=== PATIENT | female | born 1950 | race African-American/Black ===

== ENCOUNTER 2016-10-22 14:45 | Observation (INO) | payer OTHER ==
[~2016-10-22] VITALS: Ht 165.1 cm; Wt 100.0 kg
[~2016-10-22 14:45] MED LIST: ALLO300; CELE200; GLUCTAB; [UNRECOGNIZED DRUG - OTHER]; [UNRECOGNIZED DRUG - REMARK]; [UNRECOGNIZED DRUG - REMARK]
[2016-10-22 14:53] VITALS: BP 217/114; PULSE 84; RESP 18; TEMP 97.8; O2SAT 99
--- NOTE | 2016-10-22 16:07 | PD ---
HPI . AMS x 1 day Chief Complaint: Dizziness Time Seen by Provider: 16:07 Travel History International Travel<30 days: No Contact w/Intl Traveler<30days: No Traveled to known affect area: No History of Present Illness HPI 66 yr old female with HTN, DM, HLD, chronic leg pain, and gout here with c/o AMS x 1 day. Apparently patient had severe leg pain yesterday and reached out to her sister who gave her some unknown medicine. In addition, the patient took two tablets of baclofen. Her son reports she became very confused and has remained that way thus far. He says this is not normal for her. She is usually in her normal frame of mind. Other than taking the medications the son reports no other changes. Unfortunately she is a poor historian and told me she was 48 years old. She told the nurse she was . When conducting a ROS she admits to dizziness and leg pain. She denies any cp, sob, nausea, vomiting , diarrhea, constipation, abdominal pain, headache, fatige, etc. She denies any cold sxs, fever or chills. She has not had any other medication changes. She follows with her PCP Dr. Farrar. [facility] Past Medical History Arthritis: Yes Diabetes: Yes : 5 Para: 4 Miscarriage: 1 : 0 Tubal Ligation: Yes Past Surgical History Hysterectomy: Yes Social History Alcohol Use: No Tobacco Use: No Allergies-Medications (Allergen,Severity, Reaction): Coded Allergies: No Known Allergies (Verified , 10/22/16) Reported Meds & Prescriptions Reported Meds & Active Scripts Active Reported Glipizide 5 Mg Tab 5 Mg PO BIDAC Take 30 minutes before a meal Lisinopril 5 Mg Tab 5 Mg PO DAILY Zocor (Simvastatin) 20 Mg Tab 20 Mg PO DAILY Lasix (Furosemide) 40 Mg Tab 40 Mg PO DAILY Allopurinol 100 Mg Tab 100 Mg PO DAILY Metformin (Metformin HCl) 850 Mg Tab 750 Mg PO DAILY With a meal Baclofen 10 Mg Tab 10 Mg PO TID Ibuprofen 800 Mg Tab 800 Mg PO BID NEB Review of Systems General / Constitutional: No: Fever Eyes: No: Visual changes HENT: No: Headaches Cardiovascular: No: Chest Pain or Discomfort Respiratory: No: Shortness of Breath Gastrointestinal: No: Abdominal Pain Genitourinary: No: Dysuria Musculoskeletal: No: Pain Skin: No Rash Neurologic: Positive: Dizziness, Other (AMS), No: Weakness Psychiatric: No: Depression Endocrine: No: Polydipsia Hematologic/Lymphatic: No: Easy Bruising Physical Exam Narrative GENERAL: AAO x 3, no acute distress, Well-nourished, well-developed patient. Comfortable and pleasantly confused. SKIN: Warm and dry. No visible rashes or bruising. HEAD: Normocephalic and atraumatic. EYES: No scleral icterus. No injection or drainage. EOM intact, PERRLA ENT: No nasal drainage noted. Mucous membranes pink. Airway patent. NECK: Supple, trachea midline. No JVD. CARDIOVASCULAR: Regular rate and rhythm without murmurs, gallops, or rubs. RESPIRATORY: Breath sounds equal bilaterally. No accessory muscle use. No rhonchi or rales. GASTROINTESTINAL: Abdomen soft, non-tender, nondistended. EXTREMITIES: No cyanosis or edema. No abnormalities with legs.Ambulatory. No obvious deformity other than a slight limp with gait, which family relays as normal. BACK: Nontender without obvious deformity. No CVA tenderness. PSYCH: AAO x 3, normal affect. She is aware of person, place, time. Data Data Last Documented VS Vital Signs Date Time Temp Pulse Resp B/P Pulse Ox O2 Delivery O2 Flow Rate FiO2 10/22/16 18:20 78 18 160/86 99 Room Air 10/22/16 14:53 97.8 Orders Complete Blood Count With Diff (10/22/16 16:14) Comprehensive Metabolic Panel (10/22/16 16:14) Lactic Acid Sepsis Protocol (10/22/16 16:14) Urinalysis - C+S If Indicated (10/22/16 16:14) Ct Brain W/O Iv Contrast(Rout) (10/22/16 16:14) Drug Screen, Random Urine (10/22/16 16:14) Alcohol (Ethanol) (10/22/16 16:14) Salicylates (Aspirin) (10/22/16 16:14) Tylenol (Acetaminophen) (10/22/16 16:14) Blood Culture (10/22/16 18:22) Labs Laboratory Tests Test 10/22/16 10/22/16 16:20 16:35 Lactic Acid Level 1.1 mmol/L White Blood Count 11.3 TH/MM3 Red Blood Count 5.14 MIL/MM3 Hemoglobin 13.7 GM/DL Hematocrit 41.9 % Mean Corpuscular Volume 81.5 FL Mean Corpuscular Hemoglobin 26.6 PG Mean Corpuscular Hemoglobin 32.7 % Concent Red Cell Distribution Width 15.9 % Platelet Count 232 TH/MM3 Mean Platelet Volume 9.4 FL Neutrophils (%) (Auto) 72.3 % Lymphocytes (%) (Auto) 22.7 % Monocytes (%) (Auto) 4.3 % Eosinophils (%) (Auto) 0.0 % Basophils (%) (Auto) 0.7 % Neutrophils # (Auto) 8.2 TH/MM3 Lymphocytes # (Auto) 2.6 TH/MM3 Monocytes # (Auto) 0.5 TH/MM3 Eosinophils # (Auto) 0.0 TH/MM3 Basophils # (Auto) 0.1 TH/MM3 CBC Comment DIFF FINAL Differential Comment Sodium Level 143 MEQ/L Potassium Level 4.9 MEQ/L Chloride Level 107 MEQ/L Carbon Dioxide Level 27.1 MEQ/L Anion Gap 9 MEQ/L Blood Urea Nitrogen 19 MG/DL Creatinine 1.17 MG/DL Estimat Glomerular Filtration 56 ML/MIN Rate Random Glucose 114 MG/DL Calcium Level 9.4 MG/DL Total Bilirubin 0.4 MG/DL Aspartate Amino Transf 22 U/L (AST/SGOT) Alanine Aminotransferase 17 U/L (ALT/SGPT) Alkaline Phosphatase 106 U/L Total Protein 8.1 GM/DL Albumin 3.8 GM/DL Salicylates Level LESS THAN 1.7 MG/DL Acetaminophen Level LESS THAN 2.0 MCG/ML Ethyl Alcohol Level LESS THAN 3 MG/DL MDM Medical Decision Making Medical Screen Exam Complete: Yes Emergency Medical Condition: Yes Medical Record Reviewed: Yes Differential Diagnosis AMS, Drug reaction, UTI, Transient Global Amnesia, TIA Narrative Course 66 yr old female with HTN, DM, HLD, chronic leg pain, and gout here with c/o AMS x 1 day. Apparently patient had severe leg pain yesterday and reached out to her sister who gave her some unknown medicine. In addition, the patient took two tablets of baclofen. Her son reports she became very confused and has remained that way thus far. He says this is not normal for her. She is usually in her normal frame of mind. Other than taking the medications the son reports no other changes. Unfortunately she is a poor historian and told me she was 48 years old. She told the nurse she was . When conducting a ROS she admits to dizziness and leg pain. She denies any cp, sob, nausea, vomiting , diarrhea, constipation, abdominal pain, headache, fatige, etc. She denies any cold sxs, fever or chills. She has not had any other medication changes. She follows with her PCP Dr. Farrar. 160/88 manual bp check personally I checked myself and 170/90 Mild leukocytosis mild dehydration with elevated bun/creatinine still waiting on urine and drug screen Discussed with Dr. Matthews, we will admit the patient for 23 hour observation. I will try to obtain urine before transfer. At the time of transfer for admission, patient is stable and in no signs of distress. She is very anxious and barely allowing staff to take bp etc. Diagnosis Primary Impression: Altered mental status Additional Impressions: Chronic leg pain Hypertensive emergency Admitting Information Admitting Physician Requests: Admit Additional Instructions: Patient recommended for admission. I discussed this with the family and patient and they were in agreement. Condition: Stable Aleksandra Tello Oct 22, 2016 16:07
[2016-10-22] MEDS ORDERED: LISI-519 PO (16:48)
[2016-10-22] MEDS ORDERED: IBUP800T23 PO (16:48)
[2016-10-22] MEDS ORDERED: METF850T PO (16:48)
[2016-10-22] MEDS ORDERED: GLIP5TAB8 PO (16:48)
[2016-10-22] MEDS ORDERED: ZOCO20TA PO (16:48)
[2016-10-22] MEDS ORDERED: ALLO100T PO (16:48)
[2016-10-22] MEDS ORDERED: FURO1TAB60 PO (16:48)
[2016-10-22] MEDS ORDERED: BACL10TA PO (16:48)
[2016-10-22 16:57] LABS: AUTOMATED NEUTROPHIL # 8.2 TH/MM3 (1.8-7.7); BASOPHIL # 0.1 TH/MM3 (0-0.2); BASOPHIL % 0.7 % (0.0-2.0); HEMATOCRIT 41.9 % (35.0-46.0); HEMO FLAGS DIFF FINAL; LYMPH % 22.7 % (9.0-44.0); LYMPHOCYTE # 2.6 TH/MM3 (1.0-4.8); MEAN CELL VOLUME 81.5 FL (80.0-100.0); MEAN CORPUSCULAR HEMOGLOBIN 26.6 PG (27.0-34.0); MEAN CORPUSCULAR HGB CONC 32.7 % (32.0-36.0); MONO % 4.3 % (0.0-8.0); NEUT % 72.3 % (16.0-70.0); PLATELET COUNT 232 TH/MM3 (150-450); RED BLOOD COUNT 5.14 MIL/MM3 (4.00-5.30); RED CELL DISTRIBUTION WIDTH 15.9 % (11.6-17.2); WHITE BLOOD COUNT 11.3 TH/MM3 (4.0-11.0)
--- NOTE | 2016-10-22 17:12 | RADRPT ---
EXAM DATE/TIME: 10/22/2016 17:06 [place] COMPARISON: No previous studies available for comparison. INDICATIONS : Altered mental status; dizziness and vomiting. RADIATION DOSE: 38.28 CTDIvol (mGy) MEDICAL HISTORY : Diabetes mellitus type 2. SURGICAL HISTORY : None. ENCOUNTER: Initial ACUITY: 1 day PAIN SCALE: 0/10 LOCATION: cranial TECHNIQUE: Multiple contiguous axial images were obtained of the head. Using automated exposure control and adj ustment of the mA and/or kV according to patient size, radiation dose was kept as low as reasonably a chievable to obtain optimal diagnostic quality images. FINDINGS: CEREBRUM: The ventricles are normal for age. No evidence of midline shift, mass lesion, hemorrhage or acute in farction. No extra-axial fluid collections are seen. POSTERIOR FOSSA: The cerebellum and brainstem are intact. The 4th ventricle is midline. The cerebellopontine angle i s unremarkable. EXTRACRANIAL: The visualized portion of the orbits is intact. SKULL: The calvaria is intact. No evidence of skull fracture. CONCLUSION: No acute disease. Raffaele Callahan MD on October 22, 2016 at 17:10 Board Certified Radiologist. This report was verified electronically.
[2016-10-22 17:24] LABS: ALKALINE PHOSPHATASE 106 U/L (45-117); ALT (GPT) 17 U/L (10-53); ANION GAP 9 MEQ/L (5-15); AST (GOT) 22 U/L (15-37); BICARBONATE 27.1 MEQ/L (21.0-32.0); BLOOD UREA NITROGEN 19 MG/DL (7-18); CHLORIDE 107 MEQ/L (98-107); GLOMERULAR FILTRATION RATE 56 ML/MIN (>89); SODIUM (NA) 143 MEQ/L (136-145); TOTAL BILIRUBIN ADULT 0.4 MG/DL (0.2-1.0)
[2016-10-22 17:25] LABS: ACETAMINOPHEN LESS THAN 2.0 MCG/ML (10.0-30.0); POTASSIUM 4.9 MEQ/L (3.5-5.1)
[2016-10-22 18:20] VITALS: BP 160/86; PULSE 78; RESP 18; O2SAT 99
[2016-10-22] MEDS ORDERED: NALOXONE HCL 0.4 MG/ML AMP IV PRN (20:15)
[2016-10-22] MEDS ORDERED: SENNOSIDES 8.6 MG TAB PO PRN (20:15)
[2016-10-22] MEDS ORDERED: ACETAMINOPHEN 325 MG TAB PO PRN (20:15)
[2016-10-22] MEDS ORDERED: MAGNESIUM HYDROXIDE SUSP 30 ML CUP PO PRN (20:15)
[2016-10-22] MEDS ORDERED: BISACODYL 10 MG SUPP PR PRN (20:15)
[2016-10-22] MEDS ORDERED: SODIUM CHLORIDE 0.9% FLUSH 5 ML FLUSH FLUSH PRN (20:15)
--- NOTE | 2016-10-22 20:23 | HHI.HP ---
[facility] Service [place] [facility] Primary Care Physician Mg Farrar M.D. Admission Diagnosis ams Diagnoses: Chief Complaint: Change in mental status, leg pain Travel History International Travel<30 Days: No Contact w/Intl Traveler <30 Da: No Traveled to Known Affected Are: No History of Present Illness 66 years old female with history of hypertension diabetes mellitus hyperlipidemia chronic leg pain and gout presented to the ED with complaining of confusion and acute change in mental status. ED notes mentioning the sister giving her some unknown medication to help her out with her leg pain. As per the patient she has sciatica nerve, she complained of lateral side pain of the left thigh started in her lower back. In general patient is extremely poor historian, she reported headache along with the leg pain however she denied any chest pain short of breath nausea vomiting diarrhea constipation abdominal pain , flulike syndrome, fever or chills. In ED initially she had a blood pressure of 217/114 which dropped later on to 160/86, age and takes lisinopril 5 mg, along with Lasix glipizide and metformin When I saw the patient she was already improved she was awake alert oriented to person time and place Review of Systems All 10 systems reviewed and was positive for what is mentioned in history of present illness otherwise negative Past Family Social History Past Medical History As in history of present illness Past Surgical History Hysterectomy Allergies: Coded Allergies: No Known Allergies (Verified , 10/22/16) Family History Patient aware of medical problem runs in her family Social History Denied tobacco alcohol or illicit drug abuse Physical Exam Vital Signs Vital Signs Date Time Temp Pulse Resp B/P Pulse Ox O2 Delivery O2 Flow Rate FiO2 10/22/16 18:20 78 18 160/86 99 Room Air 10/22/16 16:24 17 98 Room Air 10/22/16 14:53 97.8 84 18 217/114 99 Physical Exam GENERAL: This is a well-nourished, well-developed patient, in no apparent distress. SKIN: No rashes, warm and dry HEAD: Atraumatic. Normocephalic. EYES: Pupils equal round and reactive. Extraocular motions intact. No scleral icterus. ENT: Nose without bleeding, or drainage, Airway patent. NECK: Trachea midline. Supple CARDIOVASCULAR: Regular rate and rhythm without murmurs, gallops, or rubs. RESPIRATORY: Fair air entry bilaterally. No wheezes, rales, or rhonchi. GASTROINTESTINAL: Abdomen soft, non-tender, nondistended. Positive bowel sounds MUSCULOSKELETAL: Extremities without clubbing, cyanosis, or edema. Pedal pulses appreciated NEUROLOGICAL: Awake and alert. Cranial nerves II through XII intact. Motor and sensory grossly within normal limits. Five out of 5 muscle strength in all muscle groups. Normal speech. Laboratory Laboratory Tests Test 10/22/16 10/22/16 16:20 16:35 Lactic Acid Level 1.1 White Blood Count 11.3 Red Blood Count 5.14 Hemoglobin 13.7 Hematocrit 41.9 Mean Corpuscular Volume 81.5 Mean Corpuscular Hemoglobin 26.6 Mean Corpuscular Hemoglobin 32.7 Concent Red Cell Distribution Width 15.9 Platelet Count 232 Mean Platelet Volume 9.4 Neutrophils (%) (Auto) 72.3 Lymphocytes (%) (Auto) 22.7 Monocytes (%) (Auto) 4.3 Eosinophils (%) (Auto) 0.0 Basophils (%) (Auto) 0.7 Neutrophils # (Auto) 8.2 Lymphocytes # (Auto) 2.6 Monocytes # (Auto) 0.5 Eosinophils # (Auto) 0.0 Basophils # (Auto) 0.1 CBC Comment DIFF FINAL Differential Comment Sodium Level 143 Potassium Level 4.9 Chloride Level 107 Carbon Dioxide Level 27.1 Anion Gap 9 Blood Urea Nitrogen 19 Creatinine 1.17 Estimat Glomerular Filtration 56 Rate Random Glucose 114 Calcium Level 9.4 Total Bilirubin 0.4 Aspartate Amino Transf 22 (AST/SGOT) Alanine Aminotransferase 17 (ALT/SGPT) Alkaline Phosphatase 106 Total Protein 8.1 Albumin 3.8 Salicylates Level LESS THAN 1.7 Acetaminophen Level LESS THAN 2.0 Ethyl Alcohol Level LESS THAN 3 Date/Time Procedure Status Source Growth 10/22/16 18:50 Aerobic Blood Culture Received Blood Peripheral Pending 10/22/16 18:50 Anaerobic Blood Culture Received Blood Peripheral Pending Result Diagram: 10/22/16 1635 10/22/16 1635 Imaging Last Impressions Head CT 10/22/16 1614 Signed Impressions: Service Date/Time: Mikey, October 22, 2016 17:06 - CONCLUSION: No acute disease. Raffaele Callahan MD Assessment and Plan Assessment and Plan 66 years old female admitted for Hypertensive emergency with encephalopathy>> already started to improve Change in mental status due to above MICHELLE mostly hypertensive nephropathy DM H/O HTN Hyperlipidemia DVT prophylaxis Plan: -Admit for observation under telemetry -Vasotec and clonidine as needed to keep blood pressure at goal of 160/90, trying to drop blood pressure 25% for the first 6 hours, I had the nurse check manual blood pressure which was 174/88 . -Resume her lisinopril most likely will need to increase her dose at discharge -UA still pending -Lactic acid, CT brain, BNP, LFT, Ck, troponin all personally reviewed by me within normal limits -Monitor BMP, avoid nephrotoxins, better control blood pressure, monitor urine output vasotec , clonidine lactic acid normal Discussed Condition With Patient Rachel Hector MD Oct 22, 2016 20:23
[2016-10-22] MEDS ORDERED: cloNIDine HCL 0.1 MG TAB PO PRN (20:30)
[2016-10-22] MEDS ORDERED: ENALAPRILAT 1.25 MG/ML VIAL IV PUSH PRN (20:30)
[2016-10-22] MEDS ORDERED: GLUCAGON 1 MG/ML VIAL OTHER PRN (20:30)
[2016-10-22] MEDS ORDERED: DEXTROSE 50% IN WATER 50 ML VIAL(D50) IV PUSH PRN (20:30)
[2016-10-22] MEDS: DOCUSATE SODIUM 100 MG CAP PO SCH (20:51)
[2016-10-22] MEDS: INSULIN NovoLIN REGULAR SUPPLEMENTAL SCALE SQ SCH (20:51)
[2016-10-22] MEDS: HEPARIN SODIUM - SQ 10,000 UNITS/ML VIAL SQ SCH (20:52)
[2016-10-22] MEDS: SODIUM CHLORIDE 0.9% FLUSH 5 ML FLUSH FLUSH SCH (21:00)
[2016-10-22 21:37] VITALS: O2SAT 99
[2016-10-22 21:55] VITALS: BP 167/86; PULSE 85; RESP 16; O2SAT 98
[2016-10-22 23:07] VITALS: BP 180/85; PULSE 78; RESP 16; O2SAT 98
[2016-10-22 23:41] LABS: BACTERIA, URINE RARE /hpf; BLOOD, URINE NEG (NEG); GLUCOSE,URINE NEG (NEG); KETONE, URINE 10 mg/dL (NEG); MUCUS URINE FEW /lpf (OCC); NITRITE,URINE NEG (NEG); PH, URINE 5.5 (5.0-8.5); SQUAMOUS EPITHELIAL CELL URINE 1 /hpf (0-5); URINE COLOR YELLOW (YELLW/STRAW)
[2016-10-22 23:45] LABS: COMMENT (UR) CATH-CULT NOT IND; CULTURE IF INDICATED CATH CULTURE NOT IND
[2016-10-23] VITALS (10 sets, daily range): BP systolic 106–190; BP diastolic 51–88; PULSE 58–88; RESP 18–21; TEMP 96.1–98.4; O2SAT 96–100
[2016-10-23 00:19] LABS: AMPHETAMINE, URINE NEG (NEG); BARBITURATES, URINE NEG (NEG); COCAINE, URINE NEG (NEG)
[2016-10-23] MEDS: HEPARIN SODIUM - SQ 10,000 UNITS/ML VIAL SQ SCH ×3 (06:23→20:29)
[2016-10-23] MEDS: INSULIN NovoLIN REGULAR SUPPLEMENTAL SCALE SQ SCH ×4 (06:24→20:31)
[2016-10-23] MEDS ORDERED: glipiZIDE 5 MG TAB PO SCH (07:00)
[2016-10-23 08:24] LABS: AUTOMATED NEUTROPHIL # 5.2 TH/MM3 (1.8-7.7); BASOPHIL # 0.1 TH/MM3 (0-0.2); BASOPHIL % 0.8 % (0.0-2.0); EOSINOPHIL % 0.4 % (0.0-4.0); LYMPH % 47.9 % (9.0-44.0); LYMPHOCYTE # 5.5 TH/MM3 (1.0-4.8); MEAN CELL VOLUME 81.8 FL (80.0-100.0); MEAN CORPUSCULAR HEMOGLOBIN 26.5 PG (27.0-34.0); MEAN CORPUSCULAR HGB CONC 32.4 % (32.0-36.0); MONO % 5.4 % (0.0-8.0); NEUT % 45.5 % (16.0-70.0); PLATELET COUNT 222 TH/MM3 (150-450); RED BLOOD COUNT 5.13 MIL/MM3 (4.00-5.30); RED CELL DISTRIBUTION WIDTH 15.6 % (11.6-17.2); WHITE BLOOD COUNT 11.4 TH/MM3 (4.0-11.0)
[2016-10-23 08:25] LABS: HEMO FLAGS AUTO DIFF
[2016-10-23] MEDS: ALLOPURINOL 100 MG TAB PO SCH (08:27)
[2016-10-23] MEDS: PRAVASTATIN SOD 40 MG TAB PO SCH (08:27)
[2016-10-23] MEDS: FUROSEMIDE 40 MG TAB PO SCH (08:27)
[2016-10-23] MEDS: DOCUSATE SODIUM 100 MG CAP PO SCH ×2 (08:27→20:29)
[2016-10-23] MEDS: SODIUM CHLORIDE 0.9% FLUSH 5 ML FLUSH FLUSH SCH ×2 (08:28→20:31)
[2016-10-23 08:57] LABS: BICARBONATE 26.8 MEQ/L (21.0-32.0); INDIRECT BILIRUBIN 0.3 MG/DL (0.0-0.8); POTASSIUM 3.6 MEQ/L (3.5-5.1); TOTAL BILIRUBIN ADULT 0.4 MG/DL (0.2-1.0)
[2016-10-23] MEDS ORDERED: NON-FORMULARY DRUG (Simvastatin (Zocor) 20 MG) PO SCH (09:00)
[2016-10-23] MEDS ORDERED: LISINOPRIL 5 MG TAB PO SCH (09:00)
[2016-10-23 10:10] LABS: NEUTROPHIL # MANUAL DIFF 3.9 TH/MM3 (1.8-7.7); POLYS (SEG NEUTROPHILS) 34 % (16-70); WBC DIFF SAMPLE 100
[2016-10-23 10:13] LABS: PLATELET ESTIMATE SMEAR NORMAL (NORMAL); PLATELET MORPHOLOGY NORMAL (NORMAL)
[2016-10-23 10:14] LABS: SCAN/DIFF FINAL DIFF MANUAL
[2016-10-23] MEDS ORDERED: MECL-62 PO (12:38)
[2016-10-23] MEDS ORDERED: LISINOPRIL 20 MG TAB PO ONE (16:45)
--- NOTE | 2016-10-23 17:11 | HHI.PR ---
Subjective Remarks The pt feels better. She is not sure what happened. She says she had left hip pain which has now resolved. She thought she has been in the hospital for three days. Objective Vitals Vital Signs Date Time Temp Pulse Resp B/P Pulse Ox O2 Delivery O2 Flow Rate FiO2 10/23/16 12:00 96.1 70 20 148/78 99 10/23/16 10:35 21 10/23/16 10:11 157/74 10/23/16 08:13 65 10/23/16 08:00 97.4 64 20 190/88 100 10/23/16 04:17 98.4 88 18 141/84 98 10/23/16 01:01 97.7 87 18 148/77 97 10/23/16 00:21 58 18 143/68 98 Room Air 10/22/16 23:07 78 16 180/85 98 Room Air 10/22/16 21:55 85 16 167/86 98 Room Air 10/22/16 21:37 99 21 10/22/16 18:20 78 18 160/86 99 Room Air I/O 10/22/16 10/22/16 10/22/16 10/23/16 10/23/16 10/23/16 07:00 15:00 23:00 07:00 15:00 23:00 Intake Total 480 ml 500 ml Balance 480 ml 500 ml Intake Oral 480 ml 500 ml # Voids 2 1 2 Result Diagram: 10/23/16 0805 10/23/16 0805 Imaging Last Impressions Head CT 10/22/16 1614 Signed Impressions: Service Date/Time: Saturday, October 22, 2016 17:06 - CONCLUSION: No acute disease. Raffaele Callahan MD Objective Remarks GENERAL: This is a well-nourished, well-developed patient, in no apparent distress. SKIN: No rashes, warm and dry HEAD: Atraumatic. Normocephalic. EYES: Pupils equal round and reactive. Extraocular motions intact. No scleral icterus. ENT: Nose without bleeding, or drainage, Airway patent. NECK: Trachea midline. Supple CARDIOVASCULAR: Regular rate and rhythm without murmurs, gallops, or rubs. RESPIRATORY: Fair air entry bilaterally. No wheezes, rales, or rhonchi. GASTROINTESTINAL: Abdomen soft, non-tender, nondistended. Positive bowel sounds MUSCULOSKELETAL: Extremities without clubbing, cyanosis, or edema. Pedal pulses appreciated. No hip pain on exam. NEUROLOGICAL: Awake and alert. Cranial nerves II through XII intact. Motor and sensory grossly within normal limits. Five out of 5 muscle strength in all muscle groups. Normal speech. PSYCH: Mood and affect appropriate. Medications and IVs Current Medications Medications (Trade) Dose Ordered Sig/Charly Route Start Time Stop Time Status Last Admin (NS Flush) 2 ml UNSCH PRN FLUSH 10/22/16 20:15 (NS Flush) 2 ml BID FLUSH 10/22/16 21:00 10/23/16 08:28 (Tylenol) 650 mg Q4H PRN PO 10/22/16 20:15 10/22/16 22:20 (Dulcolax Supp) 10 mg DAILY PRN [place] 10/22/16 20:15 (Colace) 100 mg Q12HR PO 10/22/16 21:00 10/23/16 08:27 (Milk Of Magndavide Liq) 30 ml Q12H PRN PO 10/22/16 20:15 (Senokot) 17.2 mg Q12H PRN PO 10/22/16 20:15 (Heparin Inj) 5,000 units Q8HR SQ 10/22/16 22:00 10/23/16 13:43 (Narcan Inj) 0.4 mg UNSCH PRN IV 10/22/16 20:15 (Zyloprim) 100 mg DAILY PO 10/23/16 09:00 10/23/16 08:27 (Lasix) 40 mg DAILY PO 10/23/16 09:00 10/23/16 08:27 (D50w (Vial) Inj) 25 ml UNSCH PRN IV PUSH 10/22/16 20:30 (Glucagon Inj) 1 mg UNSCH PRN OTHER 10/22/16 20:30 (Vasotec Inj) 1.25 mg Q6H PRN IV PUSH 10/22/16 20:30 10/22/16 21:54 (Catapres) 0.1 mg Q6H PRN PO 10/22/16 20:30 10/22/16 23:09 (Pravachol) 40 mg DAILY PO 10/23/16 09:00 10/23/16 08:27 (Prinivil) 20 mg DAILY PO 10/24/16 09:00 A/P Assessment and Plan Hypertensive emergency with encephalopathy Already started to improve with improved BP. Lactic acid, CT brain, BNP, LFTs, Ck, troponin within normal limits. - increase lisinopril and adjust as needed. - Vasotec and clonidine as needed. MICHELLE Likely s/t hypertensive nephropathy vs. diabetes. - follow BMP and avoid nephrotoxic agents. DM Blood sugar well controlled. - home home PO meds. - insulin sliding scale. DVT prophylaxis: Heparin. Discharge Planning Likely d/c in [place]. Ramana Matthews DO Oct 23, 2016 17:11
[2016-10-24 04:37] VITALS: BP 136/73; PULSE 69; RESP 21; TEMP 98.7; O2SAT 98
[2016-10-24 05:55] LABS: HEMATOCRIT 39.9 % (35.0-46.0); MEAN CELL VOLUME 81.8 FL (80.0-100.0); MEAN CORPUSCULAR HEMOGLOBIN 26.5 PG (27.0-34.0); MEAN CORPUSCULAR HGB CONC 32.4 % (32.0-36.0); PLATELET COUNT 209 TH/MM3 (150-450); RED BLOOD COUNT 4.87 MIL/MM3 (4.00-5.30); RED CELL DISTRIBUTION WIDTH 15.7 % (11.6-17.2); REVIEW FLAG FINAL; WHITE BLOOD COUNT 9.2 TH/MM3 (4.0-11.0)
[2016-10-24] MEDS: HEPARIN SODIUM - SQ 10,000 UNITS/ML VIAL SQ SCH (06:06)
[2016-10-24] MEDS: INSULIN NovoLIN REGULAR SUPPLEMENTAL SCALE SQ SCH ×2 (06:09→11:00)
[2016-10-24 06:24] LABS: BICARBONATE 24.5 MEQ/L (21.0-32.0); MAGNESIUM 2.1 MG/DL (1.5-2.5); POTASSIUM 3.5 MEQ/L (3.5-5.1)
[2016-10-24 07:27] VITALS: BP 132/61; PULSE 70; RESP 20; TEMP 98.2; O2SAT 99
[2016-10-24] MEDS: DOCUSATE SODIUM 100 MG CAP PO SCH (08:08)
[2016-10-24] MEDS: ALLOPURINOL 100 MG TAB PO SCH (08:08)
[2016-10-24] MEDS: FUROSEMIDE 40 MG TAB PO SCH (08:08)
[2016-10-24] MEDS: PRAVASTATIN SOD 40 MG TAB PO SCH (08:08)
[2016-10-24] MEDS: SODIUM CHLORIDE 0.9% FLUSH 5 ML FLUSH FLUSH SCH (08:09)
[2016-10-24] MEDS ORDERED: POTASSIUM CHLORIDE 25 MEQ EFFERVESCENT TAB PO ONE (08:15)
[2016-10-24] MEDS ORDERED: LISI-515 PO (08:57)
--- NOTE | 2016-10-24 08:58 | HHI.DCPOC ---
Discharge Care Plan Diagnosis: (1) Hypertensive emergency (2) Altered mental status Goals to Promote Your Health * To prevent worsening of your condition and complications * To maintain your health at the optimal level Directions to Meet Your Goals Take your medications as prescribed Follow your dietary instruction Follow activity as directed Keep your appointments as scheduled Take your immunizations and boosters as scheduled If your symptoms worsen call your PCP, if no PCP go to Urgent Care Center or Emergency Room Smoking is Dangerous to Your Health. Avoid second hand smoke Call the 24-hour hour crisis hotline for domestic abuse at Ramana Matthews DO Oct 24, 2016 08:58
[2016-10-24] MEDS ORDERED: LISINOPRIL 20 MG TAB PO SCH (09:00)
--- NOTE | 2016-10-24 09:05 | HHI.PR ---
Subjective Remarks The patient was feeling well and wanted to go home. She says she has been ambulating without difficulty. She said that she had leg pain which is what brought her here but that has since gone away. She denies any trauma. She has been tolerating a diet. Objective Vitals Vital Signs Date Time Temp Pulse Resp B/P Pulse Ox O2 Delivery O2 Flow Rate FiO2 10/24/16 07:27 98.2 70 20 132/61 99 10/24/16 04:37 98.7 69 21 136/73 98 10/23/16 20:06 98.1 69 21 106/51 98 10/23/16 20:00 70 10/23/16 16:00 96.2 68 20 138/82 96 10/23/16 12:00 96.1 70 20 148/78 99 10/23/16 10:35 21 10/23/16 10:11 157/74 I/O 10/23/16 10/23/16 10/23/16 10/24/16 10/24/16 10/24/16 07:00 15:00 23:00 07:00 15:00 23:00 Intake Total 480 ml 500 ml 240 ml Balance 480 ml 500 ml 240 ml Intake Oral 480 ml 500 ml 240 ml # Voids 2 1 2 1 Result Diagram: 10/24/16 0434 10/24/16 0434 Imaging Last Impressions Head CT 10/22/16 1614 Signed Impressions: Service Date/Time: Saturday, October 22, 2016 17:06 - CONCLUSION: No acute disease. Raffaele Callahan MD Objective Remarks GENERAL: This is a well-nourished, well-developed patient, in no apparent distress. SKIN: No rashes, warm and dry HEAD: Atraumatic. Normocephalic. EYES: Pupils equal round and reactive. Extraocular motions intact. No scleral icterus. ENT: Nose without bleeding, or drainage, Airway patent. NECK: Trachea midline. Supple CARDIOVASCULAR: Regular rate and rhythm without murmurs, gallops, or rubs. RESPIRATORY: Fair air entry bilaterally. No wheezes, rales, or rhonchi. GASTROINTESTINAL: Abdomen soft, non-tender, nondistended. Positive bowel sounds MUSCULOSKELETAL: Extremities without clubbing, cyanosis, or edema. Pedal pulses appreciated. No hip or leg pain on exam. No calf tenderness, Homans test negative. NEUROLOGICAL: Awake and alert. Cranial nerves II through XII intact. Motor and sensory grossly within normal limits. Five out of 5 muscle strength in all muscle groups. Normal speech. PSYCH: Mood and affect appropriate. Procedures None. Medications and IVs Current Medications Medications (Trade) Dose Ordered Sig/Charly Route Start Time Stop Time Status Last Admin (NS Flush) 2 ml UNSCH PRN FLUSH 10/22/16 20:15 (NS Flush) 2 ml BID FLUSH 10/22/16 21:00 10/24/16 08:09 (Tylenol) 650 mg Q4H PRN PO 10/22/16 20:15 10/22/16 22:20 (Dulcolax Supp) 10 mg DAILY PRN [place] 10/22/16 20:15 (Colace) 100 mg Q12HR PO 10/22/16 21:00 10/24/16 08:08 (Milk Of Magnesia Liq) 30 ml Q12H PRN PO 10/22/16 20:15 (Senokot) 17.2 mg Q12H PRN PO 10/22/16 20:15 (Heparin Inj) 5,000 units Q8HR SQ 10/22/16 22:00 10/24/16 06:06 (Narcan Inj) 0.4 mg UNSCH PRN IV 10/22/16 20:15 (Zyloprim) 100 mg DAILY PO 10/23/16 09:00 10/24/16 08:08 (Lasix) 40 mg DAILY PO 10/23/16 09:00 10/24/16 08:08 (D50w (Vial) Inj) 25 ml UNSCH PRN IV PUSH 10/22/16 20:30 (Glucagon Inj) 1 mg UNSCH PRN OTHER 10/22/16 20:30 (Vasotec Inj) 1.25 mg Q6H PRN IV PUSH 10/22/16 20:30 10/22/16 21:54 (Catapres) 0.1 mg Q6H PRN PO 10/22/16 20:30 10/22/16 23:09 (Pravachol) 40 mg DAILY PO 10/23/16 09:00 10/24/16 08:08 (Prinivil) 20 mg DAILY PO 10/24/16 09:00 2/12/17 08:08 A/P Assessment and Plan Hypertensive emergency with encephalopathy Already started to improve with improved BP. Lactic acid, CT brain, BNP, LFTs, Ck, troponin within normal limits. - increased lisinopril to 20 mg po daily with marked improvement. Will discharge on this dose. - Vasotec and clonidine as needed. MICHELLE Likely s/t hypertensive nephropathy vs. diabetes. - follow BMP and avoid nephrotoxic agents. Improved 10/24. - outpt follow up. Left lower extremity pain Apparently the patient had severe left lower extremity pain prior to coming to the hospital. The patient denies any pain in that extremity at this time. Examination is completely benign. The patient denies any trauma to that extremity. Homans test negative. - The patient says she has a follow-up appointment with her primary care doctor tomorrow and may work up her leg pain if it returns at that time. DM Blood sugar well controlled. - resume home PO meds. - insulin sliding scale. DVT prophylaxis: Heparin. Discharge Planning Discharge home. Ramana Matthews DO Oct 24, 2016 09:05
[2016-10-24 09:34] VITALS: O2SAT 99
== END 2016-10-24 12:14 | disposition home or self-care (01) ==
LOC: NEPB 14:45 → NEDA 19:01 → NEPGCP 10-23 00:34
PROVIDERS: ADMIT Hospitalist; ATTEND Hospitalist
DX: I16.1 Hypertensive emergency (principal); G93.40 Encephalopathy, unspecified; E86.0 Dehydration; N17.9 Acute kidney failure, unspecified; N18.9 Chronic kidney disease, unspecified; I12.9 Hypertensive chronic kidney disease with stage 1 through stage 4 chronic kidney disease, or unspecified chronic kidney disease; E78.5 Hyperlipidemia, unspecified; E11.22 Type 2 diabetes mellitus with diabetic chronic kidney disease; D72.829 Elevated white blood cell count, unspecified; M54.30 Sciatica, unspecified side; M79.606 Pain in leg, unspecified; G89.29 Other chronic pain; M10.9 Gout, unspecified; Z79.84 Long term (current) use of oral hypoglycemic drugs
CPT/HCPCS: 70450; 80048; 80053; 80076; 80307; 80320; 81001; 82948; 83605; 83735; 85007; 85025; 85027; 87040; 99285; G0378; J1644; 80329; G0480